=== PATIENT | male | born 1935 | race Caucasian/White ===

== ENCOUNTER 2018-03-19 19:26 | Inpatient (IN) | payer MEDICARE ==
[~2018-03-19] VITALS: Ht 177.8 cm; Wt 75.6 kg
[~2018-03-19 19:26] MED LIST: EZET10 PO; MIDO5TAB PO; PIOG30TA10 PO; SIMV80TA7 PO
[2018-03-19] MEDS ORDERED: ONDANSETRON HCL 4 MG/2 ML VIAL ONE (19:59)
[2018-03-19] MEDS ORDERED: MORPHINE SULFATE 4 MG/1ML SYG ONE ×2 (20:00→21:57)
[2018-03-19] MEDS ORDERED: SODIUM CHLORIDE 0.9% 500ML 500 ML IV ONE (20:01)
[2018-03-19 20:10] LABS: CREATININE 1.5 mg/dL (0.5-1.5)
[2018-03-19 20:15] LABS: ALBUMIN 3.9 g/dL (3.5-5.0); BILIRUBIN,TOTAL 0.8 mg/dL (0.2-1.0); TOTAL PROTEIN, SERUM 7.4 g/dL (6.0-8.3)
[2018-03-19 20:29] LABS: BASOPHILS % (AUTO) 0.5 % (0.0-5.0); EOSINOPHILS % (AUTO) 0.3 % (0.0-8.0); HEMATOCRIT 39.2 % (42-54); LYMPHOCYTES % (AUTO) 8.8 % (21.0-51.0); MEAN CORPUSCULAR HEMOGLOBIN 29.2 pg (27.0-33.0); MEAN CORPUSCULAR HGB CONC 33.7 g/dL (32.0-36.0); MEAN CORPUSCULAR VOLUME 86.6 fL (79-99); MONOCYTES % (AUTO) 9.1 % (3.0-13.0); NEUTROPHILS % (AUTO) 81.3 % (40.0-77.0); PLATELET COUNT (AUTO) 161 K/uL (130-400); RED BLOOD CELL COUNT(AUTO) 4.53 MIL/uL (4.50-6.20); WHITE BLOOD COUNT (AUTO) 8.2 K/uL (4.8-10.8)
[2018-03-20] VITALS (7 sets, daily range): BP systolic 120–155; BP diastolic 60–88
[2018-03-20] MEDS ORDERED: ONDANSETRON HCL MDV 20ML 2 MG/ML VIAL IVP PRN (00:15)
[2018-03-20] MEDS ORDERED: MORPHINE SULFATE 2 MG/ML 1ML SYG IVP PRN (00:15)
[2018-03-20] MEDS ORDERED: ACETAMINOPHEN ELIXIR 650 MG/20.3 ML UDCUP PEG ONE (00:15)
[2018-03-20] MEDS: SODIUM CHLORIDE 0.9% 1000ML 1,000 ML IV SCH (03:58)
[2018-03-20] MEDS: LACTULOSE 20 GM/30 ML UDCUP PO SCH (03:58)
[2018-03-20 06:05] LABS: BASOPHILS % (AUTO) 0.4 % (0.0-5.0); EOSINOPHILS % (AUTO) 0.2 % (0.0-8.0); HEMATOCRIT 37.6 % (42-54); LYMPHOCYTES % (AUTO) 15.5 % (21.0-51.0); MEAN CORPUSCULAR HEMOGLOBIN 29.3 pg (27.0-33.0); MEAN CORPUSCULAR HGB CONC 33.6 g/dL (32.0-36.0); MEAN CORPUSCULAR VOLUME 87.3 fL (79-99); MONOCYTES % (AUTO) 10.9 % (3.0-13.0); PLATELET COUNT (AUTO) 164 K/uL (130-400); RED BLOOD CELL COUNT(AUTO) 4.31 MIL/uL (4.50-6.20); RED CELL DISTRIBUTION WIDTH 14.4 % (11.0-15.5); WHITE BLOOD COUNT (AUTO) 6.1 K/uL (4.8-10.8)
[2018-03-20 06:24] LABS: ALBUMIN 3.3 g/dL (3.5-5.0); BILIRUBIN,TOTAL 0.7 mg/dL (0.2-1.0); CREATININE 1.4 mg/dL (0.5-1.5); POTASSIUM 4.4 mmol/L (3.5-5.1); TOTAL PROTEIN, SERUM 6.6 g/dL (6.0-8.3)
[2018-03-20] MEDS: POLYETHYLENE GLYCOL 3350 17 GM POWD.PACK PO SCH (08:14)
[2018-03-20] MEDS: ENOXAPARIN SODIUM 40 MG/0.4 ML SYRINGE SQ SCH (08:14)
[2018-03-20] MEDS: FAMOTIDINE/PF 20 MG/2 ML VIAL IV SCH (08:14)
[2018-03-20] MEDS ORDERED: MORPHINE SULFATE 4 MG/1ML SYG ONE ×2 (09:02→22:42)
[2018-03-20] MEDS ORDERED: DIATR MEGLU/DIATRIZOATE SODIUM 30 ML BOTTLE ONE (11:46)
[2018-03-20] MEDS: KETOROLAC TROMETHAMINE 15MG/ML IV PRN (15:02)
[2018-03-20] MEDS ORDERED: LACTULOSE 20 GM/30 ML UDCUP PO SCH (18:00)
[2018-03-21 03:40] VITALS: BP 136/79
[2018-03-21 04:59] LABS: HEMATOCRIT 39.9 % (42-54); MEAN CORPUSCULAR HEMOGLOBIN 29.2 pg (27.0-33.0); MEAN CORPUSCULAR HGB CONC 33.8 g/dL (32.0-36.0); MEAN CORPUSCULAR VOLUME 86.2 fL (79-99); PLATELET COUNT (AUTO) 183 K/uL (130-400); RED BLOOD CELL COUNT(AUTO) 4.62 MIL/uL (4.50-6.20); RED CELL DISTRIBUTION WIDTH 14.1 % (11.0-15.5); WHITE BLOOD COUNT (AUTO) 7.7 K/uL (4.8-10.8)
[2018-03-21 05:20] LABS: ALBUMIN 3.2 g/dL (3.5-5.0); BILIRUBIN,TOTAL 0.9 mg/dL (0.2-1.0); CREATININE 1.6 mg/dL (0.5-1.5); TOTAL PROTEIN, SERUM 6.6 g/dL (6.0-8.3)
[2018-03-21] MEDS: SODIUM CHLORIDE 0.9% 1000ML 1,000 ML IV SCH (06:22)
[2018-03-21 08:00] VITALS: BP 139/56
[2018-03-21] MEDS: POLYETHYLENE GLYCOL 3350 17 GM POWD.PACK PO SCH (08:03)
[2018-03-21] MEDS: FAMOTIDINE/PF 20 MG/2 ML VIAL IV SCH (08:03)
[2018-03-21] MEDS: ENOXAPARIN SODIUM 40 MG/0.4 ML SYRINGE SQ SCH (08:04)
[2018-03-21 11:00] VITALS: BP 128/61
[2018-03-21] MEDS ORDERED: MORPHINE SULFATE 4 MG/1ML SYG IVP PRN (11:15)
[2018-03-21 16:00] VITALS: BP 142/71
[2018-03-21] MEDS: LACTATED RINGERS 1000ML 1,000 ML IV SCH ×2 (16:55→19:23)
[2018-03-21 19:40] VITALS: BP 143/69
[2018-03-21] MEDS: LACTULOSE 20 GM/30 ML UDCUP PO SCH ×2 (19:59)
[2018-03-21 23:28] VITALS: BP 140/55
[2018-03-21] MEDS: KETOROLAC TROMETHAMINE 15MG/ML IV PRN (23:48)
[2018-03-22 03:45] VITALS: BP 104/62
[2018-03-22] MEDS: LACTATED RINGERS 1000ML 1,000 ML IV SCH ×2 (04:32→21:04)
[2018-03-22 05:03] LABS: BASOPHILS % (AUTO) 0.2 % (0.0-5.0); EOSINOPHILS % (AUTO) 0.6 % (0.0-8.0); HEMATOCRIT 36.7 % (42-54); LYMPHOCYTES % (AUTO) 11.1 % (21.0-51.0); MEAN CORPUSCULAR HEMOGLOBIN 29.3 pg (27.0-33.0); MEAN CORPUSCULAR VOLUME 86.3 fL (79-99); MONOCYTES % (AUTO) 20.2 % (3.0-13.0); NEUTROPHILS % (AUTO) 67.9 % (40.0-77.0); PLATELET COUNT (AUTO) 157 K/uL (130-400); RED BLOOD CELL COUNT(AUTO) 4.26 MIL/uL (4.50-6.20); RED CELL DISTRIBUTION WIDTH 13.9 % (11.0-15.5); WHITE BLOOD COUNT (AUTO) 5.4 K/uL (4.8-10.8)
[2018-03-22 05:20] LABS: CREATININE 1.6 mg/dL (0.5-1.5); MAGNESIUM 1.7 mg/dL (1.80-2.40); POTASSIUM 3.6 mmol/L (3.5-5.1)
[2018-03-22 08:50] VITALS: BP 129/71
[2018-03-22] MEDS: FAMOTIDINE/PF 20 MG/2 ML VIAL IV SCH (09:17)
[2018-03-22] MEDS: ENOXAPARIN SODIUM 40 MG/0.4 ML SYRINGE SQ SCH (09:19)
[2018-03-22] MEDS ORDERED: LACTULOSE 20 GM/30 ML UDCUP GT SCH (10:15)
[2018-03-22] MEDS: MAGNESIUM HYDROXIDE 30 ML/UDCUP PEG SCH (10:34)
[2018-03-22] MEDS ORDERED: MAGNESIUM SULFATE 1 GM in SODIUM CHLORIDE 0.9% 50 ML IV SCH (11:45)
[2018-03-22 12:18] VITALS: BP 131/75
[2018-03-22] MEDS ORDERED: MEPERIDINE HCL/PF 25 MG/0.5 ML AMPUL IVP PRN (15:45)
[2018-03-22] MEDS: KETOROLAC TROMETHAMINE 15MG/ML IV PRN (15:49)
[2018-03-22 16:45] VITALS: BP 146/86
[2018-03-22 19:20] VITALS: BP 143/74
[2018-03-23 00:11] VITALS: BP 123/70
[2018-03-23 04:10] VITALS: BP 129/69
[2018-03-23 05:39] LABS: BASOPHILS % (AUTO) 0.4 % (0.0-5.0); EOSINOPHILS % (AUTO) 0.2 % (0.0-8.0); HEMATOCRIT 39.1 % (42-54); MEAN CORPUSCULAR HEMOGLOBIN 29.4 pg (27.0-33.0); MEAN CORPUSCULAR HGB CONC 33.9 g/dL (32.0-36.0); MEAN CORPUSCULAR VOLUME 86.7 fL (79-99); MONOCYTES % (AUTO) 12.7 % (3.0-13.0); NEUTROPHILS % (AUTO) 79.7 % (40.0-77.0); NUCLEATED RED BLOOD CELLS 0.1 % (0.0-0.19); PLATELET COUNT (AUTO) 159 K/uL (130-400); RED BLOOD CELL COUNT(AUTO) 4.51 MIL/uL (4.50-6.20); RED CELL DISTRIBUTION WIDTH 13.8 % (11.0-15.5); WHITE BLOOD COUNT (AUTO) 2.7 K/uL (4.8-10.8)
[2018-03-23 05:48] LABS: CREATININE 1.6 mg/dL (0.5-1.5)
[2018-03-23 05:51] LABS: POTASSIUM 2.9 mmol/L (3.5-5.1)
[2018-03-23 05:52] LABS: BAND NEUTROPHILS % (MANUAL) 20 % (0-2); LYMPHOCYTES % (MANUAL) 20 % (22-44); MAN.DIFF COMMENT-IMPRESSION MANUAL DIFFERENTIAL; MONOCYTES % (MANUAL) 12 % (2-9); PLATELET MORPHOLOGY COMMENT ADEQUATE; SEGMENTED NEUTROPHILS % 48 % (40-70)
[2018-03-23] MEDS: LACTATED RINGERS 1000ML 1,000 ML IV SCH (06:16)
[2018-03-23] MEDS ORDERED: PHARMACY COMMUNICATION MISC SCH (06:45)
[2018-03-23 07:00] VITALS: BP 114/49
[2018-03-23] MEDS ORDERED: POTASSIUM CHLORIDE 10MEQ/100ML 100 ML IV SCH (07:00)
[2018-03-23] MEDS ORDERED: DIATR MEGLU/DIATRIZOATE SODIUM 30 ML BOTTLE ONE (09:18)
[2018-03-23] MEDS: MAGNESIUM HYDROXIDE 30 ML/UDCUP PEG SCH (10:15)
[2018-03-23 11:00] VITALS: BP 98/57
[2018-03-23] MEDS: ENOXAPARIN SODIUM 40 MG/0.4 ML SYRINGE SQ SCH (13:19)
[2018-03-23] MEDS: FAMOTIDINE/PF 20 MG/2 ML VIAL IV SCH (13:21)
[2018-03-23] MEDS: POTASSIUM CHLORIDE 10MEQ/100ML 100 ML IV SCH ×2 (13:21→22:42)
[2018-03-23] MEDS ORDERED: DEXTROSE 5% IV SCH (14:15)
[2018-03-23] MEDS ORDERED: POTASSIUM CHLORIDE IV SCH (14:15)
[2018-03-23] MEDS ORDERED: WATER IV SCH (14:15)
[2018-03-23] MEDS: POTASSIUM CHLORIDE 10 MEQ in DEXTROSE 5%-WATER 1,000 ML IV SCH (15:36)
[2018-03-23] MEDS: ZOSYN 3.375GM+NS 50ML 50 ML IV SCH ×2 (15:37→22:42)
[2018-03-23 16:00] VITALS: BP 106/63
[2018-03-23 19:25] VITALS: BP 101/58
[2018-03-23] MEDS: CLINIMIX E 4.25%-5% SOLUTION 2,000 ML IV SCH (23:02)
[2018-03-24 00:11] VITALS: BP 104/50
[2018-03-24] MEDS: POTASSIUM CHLORIDE 10 MEQ in DEXTROSE 5%-WATER 1,000 ML IV SCH (03:39)
[2018-03-24 04:10] VITALS: BP 110/60
[2018-03-24 05:43] LABS: BASOPHILS % (AUTO) 0.2 % (0.0-5.0); EOSINOPHILS % (AUTO) 1.4 % (0.0-8.0); HEMATOCRIT 34.5 % (42-54); LYMPHOCYTES % (AUTO) 7.2 % (21.0-51.0); MEAN CORPUSCULAR HEMOGLOBIN 30.6 pg (27.0-33.0); MEAN CORPUSCULAR HGB CONC 35.4 g/dL (32.0-36.0); MEAN CORPUSCULAR VOLUME 86.5 fL (79-99); MONOCYTES % (AUTO) 7.7 % (3.0-13.0); NEUTROPHILS % (AUTO) 83.5 % (40.0-77.0); PLATELET COUNT (AUTO) 143 K/uL (130-400); RED BLOOD CELL COUNT(AUTO) 3.99 MIL/uL (4.50-6.20); RED CELL DISTRIBUTION WIDTH 13.9 % (11.0-15.5); WHITE BLOOD COUNT (AUTO) 8.6 K/uL (4.8-10.8)
[2018-03-24 05:50] LABS: CREATININE 1.7 mg/dL (0.5-1.5); MAGNESIUM 2.7 mg/dL (1.80-2.40); POTASSIUM 3.3 mmol/L (3.5-5.1)
[2018-03-24] MEDS: ZOSYN 3.375GM+NS 50ML 50 ML IV SCH ×3 (06:21→20:40)
[2018-03-24 07:00] VITALS: BP 124/59
[2018-03-24] MEDS: ENOXAPARIN SODIUM 40 MG/0.4 ML SYRINGE SQ SCH (09:00)
[2018-03-24] MEDS: MAGNESIUM HYDROXIDE 30 ML/UDCUP PEG SCH (09:06)
[2018-03-24] MEDS: FAMOTIDINE/PF 20 MG/2 ML VIAL IV SCH (09:53)
[2018-03-24] MEDS: KETOROLAC TROMETHAMINE 15MG/ML IV PRN (09:56)
[2018-03-24 11:42] VITALS: BP 104/51
[2018-03-24 15:00] VITALS: BP 106/58
[2018-03-24] MEDS ORDERED: BISACODYL 10 MG SUPP.RECT RC ONE ×2 (16:16→17:30)
[2018-03-24] MEDS ORDERED: LACTULOSE 20 GM/30 ML UDCUP ONE (16:41)
[2018-03-24] MEDS ORDERED: LACTULOSE 20 GM/30 ML UDCUP PO SCH (17:30)
[2018-03-24] MEDS: CLINIMIX E 4.25%-5% SOLUTION 2,000 ML IV SCH (17:57)
[2018-03-24 20:20] VITALS: BP 123/58
[2018-03-25] VITALS (21 sets, daily range): BP systolic 90–150; BP diastolic 33–109
[2018-03-25] MEDS: ZOSYN 3.375GM+NS 50ML 50 ML IV SCH ×3 (04:17→20:54)
[2018-03-25] MEDS: POTASSIUM CHLORIDE 10 MEQ in DEXTROSE 5%-WATER 1,000 ML IV SCH (05:29)
[2018-03-25 05:46] LABS: BASOPHILS % (AUTO) 0.2 % (0.0-5.0); EOSINOPHILS % (AUTO) 2.9 % (0.0-8.0); HEMATOCRIT 34.5 % (42-54); MEAN CORPUSCULAR HEMOGLOBIN 29.6 pg (27.0-33.0); MEAN CORPUSCULAR HGB CONC 34.2 g/dL (32.0-36.0); MEAN CORPUSCULAR VOLUME 86.6 fL (79-99); MONOCYTES % (AUTO) 10.2 % (3.0-13.0); NEUTROPHILS % (AUTO) 77.7 % (40.0-77.0); PLATELET COUNT (AUTO) 138 K/uL (130-400); RED BLOOD CELL COUNT(AUTO) 3.99 MIL/uL (4.50-6.20); RED CELL DISTRIBUTION WIDTH 13.6 % (11.0-15.5); WHITE BLOOD COUNT (AUTO) 4.8 K/uL (4.8-10.8)
[2018-03-25 05:56] LABS: CREATININE 1.6 mg/dL (0.5-1.5)
[2018-03-25] MEDS ORDERED: POTASSIUM CHLORIDE 20MEQ/100ML 100 ML IV SCH (08:00)
[2018-03-25] MEDS: ENOXAPARIN SODIUM 40 MG/0.4 ML SYRINGE SQ SCH (09:00)
[2018-03-25] MEDS: FAMOTIDINE/PF 20 MG/2 ML VIAL IV SCH (09:04)
[2018-03-25 15:17] LABS: INR 1.05 (0.85-1.15)
[2018-03-25] MEDS ORDERED: PROPOFOL 10 MG/ML 20ML VIAL IV ONE (16:11)
[2018-03-25] MEDS ORDERED: MIDAZOLAM HCL 1 MG/ML 2ML VIAL ONE (16:11)
[2018-03-25] MEDS ORDERED: SUCCINYLCHOLINE 200MG/10ML SYR ONE (16:11)
[2018-03-25] MEDS ORDERED: LIDOCAINE PF 2% 5ML ABBOJECT ONE (16:11)
[2018-03-25] MEDS ORDERED: FENTANYL CITRATE PF 50 MCG/1 ML 2ML VIAL ONE ×2 (16:12→17:46)
[2018-03-25] MEDS ORDERED: POTASSIUM CHLORIDE 20MEQ/100ML 100 ML IV ONE (16:33)
[2018-03-25] MEDS ORDERED: EPHEDRINE SULFATE 50 MG/ML AMPULE ONE (17:02)
[2018-03-25] MEDS ORDERED: ONDANSETRON HCL 4 MG/2 ML 8 MG in SODIUM CHLORIDE 0.9% 50 ML IVP NR (21:00)
[2018-03-25] MEDS ORDERED: MORPHINE SULFATE 2 MG/ML 1ML SYG IVP PRN (21:00)
[2018-03-25] MEDS ORDERED: EPHEDRINE SULFATE 50 MG/ML AMPULE IVP PRN (21:00)
[2018-03-25] MEDS ORDERED: HYDROCODONE/ACETAMINOPHEN 5/325 MG TAB PO PRN ×2 (21:00)
[2018-03-25] MEDS ORDERED: METOCLOPRAMIDE 10 MG/2 ML VIAL IVP PRN (21:00)
[2018-03-25] MEDS ORDERED: DiphenhydrAMINE HCL 50 MG/ML VIAL IVP PRN (21:00)
[2018-03-25] MEDS ORDERED: ROPIVACAINE 0.2%200ML EPIDURAL 200 ML EP SCH (21:00)
[2018-03-25] MEDS ORDERED: CLINIMIX E 5%-15% 2,000 ML IV ONE (21:00)
[2018-03-25] MEDS ORDERED: ONDANSETRON HCL 4 MG/2 ML VIAL IVP PRN ×2 (21:00)
[2018-03-25] MEDS ORDERED: PROMETHAZINE HCL 25 MG/ML 1ML AMPULE IM PRN (21:00)
[2018-03-25] MEDS ORDERED: NALOXONE HCL 0.4 MG/1 ML ML IVP PRN (21:00)
[2018-03-26] VITALS (7 sets, daily range): BP systolic 137–157; BP diastolic 61–78
[2018-03-26] MEDS: ROPIVACAINE 0.2%200ML EPIDURAL 100 ML EP SCH ×3 (03:49→23:29)
[2018-03-26 05:29] LABS: BASOPHILS % (AUTO) 0.1 % (0.0-5.0); EOSINOPHILS % (AUTO) 0.2 % (0.0-8.0); HEMATOCRIT 37.9 % (42-54); LYMPHOCYTES % (AUTO) 6.5 % (21.0-51.0); MEAN CORPUSCULAR HGB CONC 34.2 g/dL (32.0-36.0); MEAN CORPUSCULAR VOLUME 87.7 fL (79-99); MONOCYTES % (AUTO) 10.4 % (3.0-13.0); NEUTROPHILS % (AUTO) 82.8 % (40.0-77.0); PLATELET COUNT (AUTO) 153 K/uL (130-400); RED BLOOD CELL COUNT(AUTO) 4.32 MIL/uL (4.50-6.20); RED CELL DISTRIBUTION WIDTH 13.8 % (11.0-15.5); WHITE BLOOD COUNT (AUTO) 5.9 K/uL (4.8-10.8)
[2018-03-26 05:49] LABS: BILIRUBIN,TOTAL 1.2 mg/dL (0.2-1.0); CREATININE 1.5 mg/dL (0.5-1.5); MAGNESIUM 2.4 mg/dL (1.80-2.40); PHOSPHORUS 2.4 mg/dL (2.5-4.9); POTASSIUM 3.4 mmol/L (3.5-5.1); TOTAL PROTEIN, SERUM 5.2 g/dL (6.0-8.3)
[2018-03-26] MEDS: ZOSYN 3.375GM+NS 50ML 50 ML IV SCH ×3 (08:01→21:19)
[2018-03-26] MEDS: FAMOTIDINE/PF 20 MG/2 ML VIAL IV SCH (10:08)
[2018-03-26] MEDS ORDERED: POTASSIUM CHLORIDE 20MEQ/100ML 100 ML IV PRN (10:15)
[2018-03-26] MEDS ORDERED: CLINIMIX E 5%-15% 2,000 ML IV ONE (21:00)
[2018-03-27 00:20] VITALS: BP 144/67
[2018-03-27 04:36] VITALS: BP 139/70
[2018-03-27] MEDS: ZOSYN 3.375GM+NS 50ML 50 ML IV SCH ×3 (04:51→22:41)
[2018-03-27 08:00] VITALS: BP 138/72
[2018-03-27] MEDS: FAMOTIDINE/PF 20 MG/2 ML VIAL IV SCH (08:33)
[2018-03-27 11:00] VITALS: BP 141/79
[2018-03-27] MEDS: ROPIVACAINE 0.2% 100ML VIAL 100 ML IJ SCH ×2 (13:35→23:54)
[2018-03-27 16:00] VITALS: BP 129/72
[2018-03-27 19:00] VITALS: BP 132/73
[2018-03-27] MEDS ORDERED: CLINIMIX E 5%-15% 2,000 ML IV ONE (21:00)
[2018-03-28] VITALS: BP 131/66
[2018-03-28 04:00] VITALS: BP 145/64
[2018-03-28] MEDS: ZOSYN 3.375GM+NS 50ML 50 ML IV SCH ×3 (06:01→22:58)
[2018-03-28 06:05] LABS: BASOPHILS % (AUTO) 0.4 % (0.0-5.0); EOSINOPHILS % (AUTO) 6.1 % (0.0-8.0); HEMATOCRIT 35.1 % (42-54); LYMPHOCYTES % (AUTO) 10.6 % (21.0-51.0); MEAN CORPUSCULAR HEMOGLOBIN 28.8 pg (27.0-33.0); MEAN CORPUSCULAR HGB CONC 32.9 g/dL (32.0-36.0); MEAN CORPUSCULAR VOLUME 87.5 fL (79-99); MONOCYTES % (AUTO) 15.1 % (3.0-13.0); NEUTROPHILS % (AUTO) 67.8 % (40.0-77.0); PLATELET COUNT (AUTO) 164 K/uL (130-400); RED BLOOD CELL COUNT(AUTO) 4.01 MIL/uL (4.50-6.20); RED CELL DISTRIBUTION WIDTH 13.6 % (11.0-15.5); WHITE BLOOD COUNT (AUTO) 6.7 K/uL (4.8-10.8)
[2018-03-28 06:22] LABS: ALBUMIN 1.7 g/dL (3.5-5.0); BILIRUBIN,TOTAL 0.9 mg/dL (0.2-1.0); CREATININE 1.3 mg/dL (0.5-1.5); MAGNESIUM 2.2 mg/dL (1.80-2.40); PHOSPHORUS 1.9 mg/dL (2.5-4.9); POTASSIUM 3.7 mmol/L (3.5-5.1); TOTAL PROTEIN, SERUM 5.1 g/dL (6.0-8.3)
[2018-03-28 08:00] VITALS: BP 135/70
[2018-03-28] MEDS: FAMOTIDINE/PF 20 MG/2 ML VIAL IV SCH (09:45)
[2018-03-28 11:00] VITALS: BP 107/54
[2018-03-28 16:00] VITALS: BP 132/67
[2018-03-28 19:00] VITALS: BP 134/65
[2018-03-28] MEDS: NEUTRA-PHOS PACKET 1 EACH PO SCH (23:09)
[2018-03-29] VITALS (7 sets, daily range): BP systolic 100–143; BP diastolic 55–68
[2018-03-29] MEDS: ZOSYN 3.375GM+NS 50ML 50 ML IV SCH ×3 (06:02→20:30)
[2018-03-29] MEDS: FAMOTIDINE/PF 20 MG/2 ML VIAL IV SCH (09:15)
[2018-03-29] MEDS: DOCUSATE NA 100MG/10ML UDCUP PO SCH (09:22)
[2018-03-29] MEDS: NEUTRA-PHOS PACKET 1 EACH PO SCH ×3 (09:27→20:30)
[2018-03-29] MEDS ORDERED: BISACODYL 10 MG SUPP.RECT RC SCH (13:00)
[2018-03-29] MEDS ORDERED: CLINIMIX E 5%-15% 2,000 ML IV SCH (21:00)
[2018-03-30 04:00] VITALS: BP 110/57
[2018-03-30] MEDS: ZOSYN 3.375GM+NS 50ML 50 ML IV SCH ×3 (04:21→22:22)
[2018-03-30 05:54] LABS: BASOPHILS % (AUTO) 0.6 % (0.0-5.0); HEMATOCRIT 33.2 % (42-54); LYMPHOCYTES % (AUTO) 13.3 % (21.0-51.0); MEAN CORPUSCULAR HGB CONC 34.4 g/dL (32.0-36.0); MEAN CORPUSCULAR VOLUME 87.2 fL (79-99); MONOCYTES % (AUTO) 10.5 % (3.0-13.0); NEUTROPHILS % (AUTO) 70.6 % (40.0-77.0); PLATELET COUNT (AUTO) 193 K/uL (130-400); RED BLOOD CELL COUNT(AUTO) 3.81 MIL/uL (4.50-6.20); RED CELL DISTRIBUTION WIDTH 13.3 % (11.0-15.5); WHITE BLOOD COUNT (AUTO) 5.8 K/uL (4.8-10.8)
[2018-03-30 06:08] LABS: ALBUMIN 1.7 g/dL (3.5-5.0); BILIRUBIN,TOTAL 0.5 mg/dL (0.2-1.0); CREATININE 1.3 mg/dL (0.5-1.5); PHOSPHORUS 3.4 mg/dL (2.5-4.9); POTASSIUM 4.1 mmol/L (3.5-5.1)
[2018-03-30 08:00] VITALS: BP 119/57
[2018-03-30] MEDS ORDERED: BISACODYL 10 MG SUPP.RECT RC SCH (08:45)
[2018-03-30] MEDS: DOCUSATE NA 100MG/10ML UDCUP PO SCH (08:55)
[2018-03-30] MEDS: FAMOTIDINE/PF 20 MG/2 ML VIAL IV SCH (08:55)
[2018-03-30] MEDS: NEUTRA-PHOS PACKET 1 EACH PO SCH ×3 (08:56→22:22)
[2018-03-30 12:00] VITALS: BP 104/57
[2018-03-30] MEDS ORDERED: BISACODYL 10 MG SUPP.RECT RC ONE (14:03)
[2018-03-30 16:00] VITALS: BP 103/46
[2018-03-30 20:00] VITALS: BP 107/53
[2018-03-31] VITALS: BP 109/57
[2018-03-31 04:02] VITALS: BP 111/57
[2018-03-31] MEDS: ZOSYN 3.375GM+NS 50ML 50 ML IV SCH (06:15)
[2018-03-31 08:00] VITALS: BP 118/59
[2018-03-31] MEDS: DOCUSATE NA 100MG/10ML UDCUP PO SCH (09:44)
[2018-03-31] MEDS: FAMOTIDINE/PF 20 MG/2 ML VIAL IV SCH (09:44)
[2018-03-31 12:00] VITALS: BP 110/62
[2018-03-31] MEDS ORDERED: ACET1TAB12 PO (15:20)
[2018-03-31 16:00] VITALS: BP 100/54
[2018-03-31] MEDS ORDERED: NEUTRA-PHOS PACKET 1 EACH PO SCH (21:00)
== END 2018-03-31 19:33 | DRG 330 ==
LOC: EDH 19:26 → EDHIP 23:24 → 3AH 03-20 01:55
PROVIDERS: ADMIT Family Medicine; ATTEND Family Medicine
PROC: 0DT80ZZ Resection of Small Intestine, Open Approach (ICD-10-PCS; principal; 2018-03-25 16:56)
DX: K56.600 Partial intestinal obstruction, unspecified as to cause (principal); E87.0 Hyperosmolality and hypernatremia; K56.41 Fecal impaction; E87.6 Hypokalemia; I10 Essential (primary) hypertension; E86.0 Dehydration; Z96.652 Presence of left artificial knee joint; E78.5 Hyperlipidemia, unspecified; E83.39 Other disorders of phosphorus metabolism; K66.0 Peritoneal adhesions (postprocedural) (postinfection); Z87.891 Personal history of nicotine dependence; Z90.49 Acquired absence of other specified parts of digestive tract; Z93.1 Gastrostomy status; Z85.46 Personal history of malignant neoplasm of prostate; Z85.51 Personal history of malignant neoplasm of bladder; Z85.118 Personal history of other malignant neoplasm of bronchus and lung; Z82.49 Family history of ischemic heart disease and other diseases of the circulatory system
CPT/HCPCS: 36415; 71045; 74018; 74176; 74250; 74270; 80048; 80053; 81206; 83690; 83735; 84100; 84132; 85025; 85027; 85610; 88309; 92610; 97039; J0330; J1650; J1885; J2001; J2250; J2270; J2405; J2543; J2704; J2795; J3010; J3480; J3490; J7030; J7040; J7060; J7070; J7120; Q9963